=== PATIENT | male | born 1940 | race Caucasian/White ===

== ENCOUNTER 2018-06-03 18:38 | Emergency (ER) | payer MEDICARE ==
--- NOTE | 2018-06-03 18:54 | Emergency Department Record ---
History of Present Illness - General Chief Complaint: Chest Pain Stated Complaint: chest pain Time Seen by Provider: 06/03/18 18:48 Source: Patient Mode of Arrival: Ambulatory Limitations: No limitations - History of Present Illness Initial Comments: 78 yo male presents with intermittent chest discomfort on the left with some shortness of breath. He states the onset was this morning. He has felt tired throughout the day. No cough or fever. No leg pain or swelling. He has noted symptoms with activity including shortness of breath with walking. He denies CAD or DVT/PE history. Serge is his doctor. Complaint: Chest pain Onset/Timin -: Days(s) Onset: During rest Pain Location: Left chest Pain Radiation: None Severity: Mild Severity scale (1-10): 4 Consistency: Constant Improves With: Nothing Worsens With: Nothing Context: Other Anginal Symptoms: Dyspnea Treatments Prior to Arrival: None - Related Data Home Medications Medication Instructions Recorded Confirmed Last Taken Allopurinol 100 mg PO DAILY 06/03/18 06/03/18 Unknown Losartan/Hydrochlorothiazide 1 each PO DAILY 06/03/18 06/03/18 06/03/18 [Losartan-Hctz 50-12.5 mg Tab] Metformin HCl 500 mg PO DAILY 06/03/18 06/03/18 06/03/18 Omeprazole [Prilosec] 20 mg PO DAILY 06/03/18 06/03/18 06/03/18 Pravastatin Sodium [Pravachol] 80 mg PO DAILY 06/03/18 06/03/18 06/03/18 Tamsulosin HCl [Flomax] 0.4 mg PO DAILY 06/03/18 06/03/18 06/03/18 Allergies Allergy/AdvReac Type Severity Reaction Status Date / Time No Known Drug Allergies Allergy Verified 06/03/18 18:43 Travel Screening - Travel/Exposure Within Last 30 Days Have you traveled within the last 30 days?: No Review of Systems Constitutional: Reports: Weakness. Denies: Chills, Fever, Malaise Eyes: Denies: Eye discharge, Eye pain, Photophobia, Vision change ENT: Denies: Congestion, Throat pain Respiratory: Reports: Dyspnea. Denies: Cough Cardiovascular: Reports: Chest pain, Palpitations. Denies: Edema, Syncope Endocrine: Denies: Fatigue, Polydipsia, Polyuria Gastrointestinal: Denies: Abdominal pain, Diarrhea, Nausea, Vomiting Genitourinary: Denies: Dysuria, Frequency, Hematuria Musculoskeletal: Denies: Arthralgia, Back pain, Myalgia Skin: Denies: Bruising, Change in color, Rash Neurological: Denies: Headache Psychiatric: Denies: Anxiety Hematological/Lymphatic: Denies: Blood Clots, Easy bleeding, Easy bruising Past Medical History - SOCIAL HISTORY Smoking Status: Never smoker Alcohol Use: None Drug Use: None - RESPIRATORY Hx Respiratory Disorders: No - CARDIOVASCULAR Hx Cardio Disorders: Yes Hx Hypertension: Yes - NEURO Hx Neuro Disorders: No - GI Hx GI Disorders: Yes Hx Reflux: Yes Hx of Polyps: Yes Comment:: Hx of barretts - Hx Genitourinary Disorders: No - ENDOCRINE Hx Endocrine Disorders: No - MUSCULOSKELETAL Hx Musculoskeletal Disorders: Yes Hx Arthritis: Yes Hx Gout: Yes - PSYCH Hx Psych Problems: No - HEMATOLOGY/ONCOLOGY Hx Hematology/Oncology Disorders: No Family Medical History Any Significant Family History?: No Physical Exam - General General Appearance: Alert, Oriented x3, Cooperative, No acute distress Limitations: No limitations - Head Head exam: Atraumatic, Normal inspection - Eye Eye exam: Normal appearance. negative: Conjunctival injection - ENT ENT exam: Normal exam, Mucous membranes moist Ear exam: Normal external inspection Nasal Exam: Normal inspection Mouth exam: Normal external inspection - Neck Neck exam: Normal inspection - Respiratory Respiratory exam: Normal lung sounds bilaterally. negative: Accessory muscle use, Chest wall tenderness, Prolonged expiratory, Respiratory distress, Rhonchi , Stridor, Wheezes - Cardiovascular Cardiovascular Exam: Normal rhythm, Normal heart sounds, Irregular rhythm Peripheral Pulses: 2+: Radial (R), Radial (L) - GI/Abdominal GI/Abdominal exam: Soft. negative: Tenderness - Rectal Rectal exam: Deferred - exam: Deferred - Extremities Extremities exam: Normal inspection, Pedal edema (trace bilateral symmetric) - Back Back exam: Denies: CVA tenderness (R), CVA tenderness (L) - Neurological Neurological exam: Alert, Oriented X3 - Psychiatric Psychiatric exam: Normal affect, Normal mood - Skin Skin exam: Dry, Intact, Normal color, Warm Course Vital Signs 06/03/18 18:40 Temperature 97.6 F Pulse Rate 96 H Respiratory 18 Rate Blood Pressure 208/99 Pulse Ox 97 - Reevaluation(s) Reevaluation #1: EKG 18:37 Sinus with ventricular trigeminy, [place] Left ST No acute changes Intervals LBBB PVC's No old EKG 06/03/18 18:53 06/03/18 19:36 The labs were reviewed The troponin is normal The BNP is 763 The CBC and CMP are normal He is pain free at rest 06/03/18 20:05 Dr Connelly accepts the patient for transfer to [facility] [place] for additional work up Medical Decision Making - Lab Data Result diagrams: 06/03/18 18:45 06/03/18 18:45 Disposition Disposition: Transfer Clinical Impression: Chest pain Disposition: Acute Care Hospital Transfer Transfer To: [facility] [place] Reason For Transfer: chest pain Accepting Physician: Godwin Time Discussed w/Accepting Physician: 20:00 Condition: (2) Stable Forms: Patient Portal Access Time of Disposition: 20:06 Quality - Quality Measures Quality Measures: N/A - Blood Pressure Screening Does Patient Have Any of the Following: No Blood Pressure Classification: Hypertensive Reading Systolic Measurement: 208 Diastolic Measurement: 99 Screening for High Blood Pressure: < Pre-Hypertensive BP, F/U Documented > [ [id number]] Pre-Hypertensive Follow-up Interventions: Referral to alternative/primary care provider.
[2018-06-03 18:57] LABS: BASO % 0.4 % (0-6); EOS % 7.7 % (0-6); GRAN % 57.7 % (47-80); HEMATOCRIT 45.8 % (42.0-52.0); HEMOGLOBIN 15.2 gm/dl (14.0-18.0); LYMPH % 23.9 % (16-45); MEAN CELL VOLUME 91.2 fl (81-97); MEAN CORPUSCULAR HEMOGLOBIN 30.3 pg (27-33); MEAN CORPUSCULAR HGB CONC 33.2 g/dl (32-36); MEAN PLATELET VOLUME 8.7 fl (7.4-10.4); MONO % 10.3 % (0-9); PLATELET COUNT 337 K/uL (130-400); RED BLOOD COUNT 5.02 M/uL (4.40-5.70); RED CELL DISTRIBUTION WIDTH 14.1 % (11.5-14.5); WHITE BLOOD COUNT W/O DIFF 11.4 K/uL (4.2-12.2)
[2018-06-03 19:09] LABS: BLOOD UREA NITROGEN 17 mg/dL (8-23); CREATININE 1.1 mg/dL (0.7-1.2); EST GLOMERULAR FILTRATION RATE > 60 mL/min
[2018-06-03 19:10] LABS: TOTAL PROTEIN 7.2 g/dL (6.6-8.7)
[2018-06-03 19:11] LABS: GLUCOSE,RANDOM 93 mg/dL (74-109)
[2018-06-03 19:14] LABS: ALB/GLOB RATIO 1.6 (1.1-1.8); ALBUMIN 4.4 g/dL (4.0-5.0); ALKALINE PHOSPHATASE 89 U/L (40-129); ALT/SGPT 18 U/L (<41); AST/SGOT 23 U/L (10.0-50.0)
[2018-06-03 19:19] LABS: PARTIAL THROMBOPLASTIN TIME 23.8 SECONDS (24.5-39.1)
[2018-06-03] MEDS ORDERED: ASPIRIN 81 MG CHEWABLE TABLET PO ONE (19:37)
== END 2018-06-03 21:18 | disposition short-term general hospital (02) ==
LOC: ER 18:38
DX: R07.89 Other chest pain (principal); R06.02 Shortness of breath; I10 Essential (primary) hypertension
CPT/HCPCS: 71046; 80053; 83880; 84484; 85025; 85610; 85730; 93005; 93010; 99285

== ENCOUNTER 2018-07-01 13:52 | Emergency (ER) | payer MEDICARE ==
--- NOTE | 2018-07-01 14:02 | Emergency Department Record ---
History of Present Illness - General Chief complaint: Male Urogenital Problem Stated complaint: LEAKING CATHETER Time Seen by Provider: 07/01/18 13:58 Source: Patient Mode of Arrival: Ambulatory Limitations: No limitations - History of Present Illness Initial comments: 78 yo male presents with leakage around a wood catheter. No pain, pus, blood, or fevers. His catheter is for urinary retention over the last month. This catheter has been in place for about 2 weeks. No obstruction. No clots. MD Complaint: Other -: Hour(s) Location: Penis Radiation: None Severity: Mild Quality: Other Consistency: Intermittent Improves with: Other Worsens with: Urination Reports: Denies other symptoms - Related Data Allergies Allergy/AdvReac Type Severity Reaction Status Date / Time No Known Drug Allergies Allergy Verified 07/01/18 13:56 Review of Systems Constitutional: Denies: Chills, Fever, Malaise, Weakness Eyes: Denies: Eye discharge ENT: Denies: Congestion, Throat pain Respiratory: Denies: Cough Cardiovascular: Denies: Chest pain, Palpitations, Syncope Endocrine: Denies: Fatigue Gastrointestinal: Denies: Abdominal pain, Diarrhea, Nausea, Vomiting Genitourinary: Reports: Incontinence, Retention Musculoskeletal: Denies: Arthralgia, Back pain Skin: Denies: Bruising, Change in color, Rash Neurological: Denies: Headache Psychiatric: Denies: Anxiety Hematological/Lymphatic: Denies: Easy bleeding, Easy bruising Past Medical History - SOCIAL HISTORY Smoking Status: Never smoker Alcohol Use: None Drug Use: None - RESPIRATORY Hx Respiratory Disorders: No - CARDIOVASCULAR Hx Cardio Disorders: Yes Hx Hypertension: Yes - NEURO Hx Neuro Disorders: No - GI Hx GI Disorders: Yes Hx Reflux: Yes Hx of Polyps: Yes Comment:: Hx of barretts - Hx Genitourinary Disorders: No - ENDOCRINE Hx Endocrine Disorders: No - MUSCULOSKELETAL Hx Musculoskeletal Disorders: Yes Hx Arthritis: Yes Hx Gout: Yes - PSYCH Hx Psych Problems: No - HEMATOLOGY/ONCOLOGY Hx Hematology/Oncology Disorders: No Family Medical History Any Significant Family History?: No Physical Exam - General General Appearance: Alert, Oriented x3, Cooperative, No acute distress Limitations: No limitations - Head Head exam: Atraumatic, Normal inspection - Eye Eye exam: Normal appearance - ENT ENT exam: Normal exam Ear exam: Normal external inspection Nasal Exam: Normal inspection Mouth exam: Normal external inspection - Neck Neck exam: Normal inspection - GI/Abdominal GI/Abdominal exam: Soft. negative: Distended, Guarding, Tenderness - Rectal Rectal exam: Deferred - exam: Normal inspection, Other (No meatal erythema or irritation). negative : Scrotal swelling, Testicular tenderness, Urethral discharge - Extremities Extremities exam: Normal inspection - Back Back exam: Denies: CVA tenderness (R), CVA tenderness (L) - Neurological Neurological exam: Alert, Oriented X3 - Psychiatric Psychiatric exam: Normal affect, Normal mood - Skin Skin exam: Dry, Intact, Normal color, Warm Course - Reevaluation(s) Reevaluation #1: 18 Fr wood was replaced without difficulty by the RN The patient has follow up scheduled with his urologist already 07/01/18 14:25 Disposition Disposition: Discharge Clinical Impression: Wood catheter problem Qualifiers: Encounter type: initial encounter Qualified Code(s): T83.9XXA - Unspecified complication of genitourinary prosthetic device, implant and graft, initial encounter Disposition: Home, Self-Care Condition: (1) Good Instructions: Wood Catheter Placement and Care (ED) Additional Instructions: Call your urologist or return if the catheter has any problems Return to the ER for a recheck if worse, any new concerns or questions Follow up with the urologist as scheduled Review this ER visit and the tests performed with your family doctor Forms: Patient Portal Access Time of Disposition: 14:26 Quality - Quality Measures Quality Measures: N/A - Blood Pressure Screening Does Patient Have Any of the Following: Active Dx of HTN Blood Pressure Classification: Hypertensive Reading Systolic Measurement: 121 Diastolic Measurement: 96 Screening for High Blood Pressure: Patient Exclusion, Hx of HTN [G9744]
[2018-07-01] MEDS ORDERED: LIDOCAINE UROJECT 10 ML APPL MM ONE (14:07)
== END 2018-07-01 14:32 | disposition home or self-care (01) ==
LOC: ER 13:52
DX: T83.038A Leakage of other urinary catheter, initial encounter (principal); Y73.8 Miscellaneous gastroenterology and urology devices associated with adverse incidents, not elsewhere classified; I10 Essential (primary) hypertension
CPT/HCPCS: 99282

== ENCOUNTER 2018-07-04 18:38 | Emergency (ER) | payer MEDICARE ==
--- NOTE | 2018-07-04 18:57 | Emergency Department Record ---
History of Present Illness - General Chief complaint: Male Urogenital Problem Stated complaint: NEED HIS CATH CHANGED Time Seen by Provider: 07/04/18 18:53 Source: Patient Mode of Arrival: Ambulatory Limitations: No limitations - History of Present Illness Initial comments: 78 yo male presents to ED for evaluation of a leaking catheter. Patient reports that he has had an indwelling wood catheter for 4 weeks following an episode of urinary retention, did follow-up with his urologist for removal however his retention returned. Patient denies fevers/chills, nausea or vomiting symptoms. Patient reports that he would like to have his catheter removed without replacing it. MD Complaint: Other Onset/Timin -: Hour(s) Location: Penis Radiation: None Consistency: Constant Improves with: None Worsens with: None Indwelling catheter Reports: Denies other symptoms - Related Data Previous Rx's Medication Instructions Recorded Cephalexin [Keflex] 500 mg PO TID #20 cap 07/04/18 Allergies Allergy/AdvReac Type Severity Reaction Status Date / Time No Known Drug Allergies Allergy Verified 07/01/18 13:56 Travel Screening - Travel/Exposure Within Last 30 Days Have you traveled within the last 30 days?: No Review of Systems Constitutional: Denies: Chills, Fever, Malaise, Night sweats Eyes: Denies: Eye discharge, Eye pain ENT: Denies: Congestion, Ear pain, Epistaxis Respiratory: Denies: Cough, Dyspnea Cardiovascular: Denies: Chest pain, Dyspnea on exertion Endocrine: Denies: Fatigue, Heat or cold intolerance Gastrointestinal: Denies: Abdominal pain, Nausea, Vomiting Genitourinary: Reports: Retention. Denies: Incontinence Musculoskeletal: Denies: Arthralgia, Back pain, Gout, Joint swelling Skin: Denies: Bruising, Change in color Neurological: Denies: Abnormal gait, Confusion, Headache Psychiatric: Denies: Anxiety Hematological/Lymphatic: Denies: Anemia, Blood Clots Past Medical History - SOCIAL HISTORY Smoking Status: Never smoker - RESPIRATORY Hx Respiratory Disorders: No - CARDIOVASCULAR Hx Cardio Disorders: Yes Hx Hypertension: Yes - NEURO Hx Neuro Disorders: No - GI Hx GI Disorders: Yes Hx Reflux: Yes Hx of Polyps: Yes Comment:: Hx of barretts - Hx Genitourinary Disorders: No - ENDOCRINE Hx Endocrine Disorders: No - MUSCULOSKELETAL Hx Musculoskeletal Disorders: Yes Hx Arthritis: Yes Hx Gout: Yes - PSYCH Hx Psych Problems: No - HEMATOLOGY/ONCOLOGY Hx Hematology/Oncology Disorders: No Family Medical History Any Significant Family History?: No Physical Exam - General General Appearance: Alert, Oriented x3, Cooperative, No acute distress Limitations: No limitations - Head Head exam: Atraumatic, Normocephalic, Normal inspection Head exam detail: negative: Abrasion, Contusion, Fisher's sign, General tenderness, Hematoma, Laceration - Eye Eye exam: Normal appearance. negative: Conjunctival injection, Periorbital swelling, Periorbital tenderness, Scleral icterus - ENT Ear exam: negative: Auricular hematoma, Auricular trauma Nasal Exam: negative: Active bleeding, Discharge, Dried blood, Foreign body Mouth exam: negative: Drooling, Laceration, Muffled voice, Tongue elevation - Neck Neck exam: Normal inspection. negative: Meningismus, Tenderness - Respiratory Respiratory exam: Normal lung sounds bilaterally. negative: Respiratory distress, Rhonchi, Stridor, Wheezes - Cardiovascular Cardiovascular Exam: Regular rate, Normal rhythm, Normal heart sounds - GI/Abdominal GI/Abdominal exam: Soft. negative: Distended, Rebound, Rigid, Tenderness - Rectal Rectal exam: Deferred - exam: Deferred - Extremities Extremities exam: Normal inspection. negative: Pedal edema, Tenderness - Back Back exam: Denies: CVA tenderness (R), CVA tenderness (L) - Neurological Neurological exam: Alert, Normal gait, Oriented X3 - Psychiatric Psychiatric exam: Normal affect, Normal mood - Skin Skin exam: Normal color. negative: Abrasion Type of lesion: negative: abrasion Course Vital Signs 07/04/18 18:50 Temperature 98.2 F Pulse Rate [ 56 L Pulse Ox Probe] Respiratory 20 Rate Blood Pressure 112/73 [Left Arm] Pulse Ox 97 - Reevaluation(s) Reevaluation #1: 07/04/18 18:57 Patient was seen and examined Following discussion with the patient, will remove wood catheter and attempt urination trial. Reevaluation #2: 07/04/18 19:59 Patient was able to void 40 mL, will send for analysis and reassess. Reevaluation #3: 07/04/18 20:40 UA reviewed: RBC: TNTC WBC: TNTC Bacteria: 2+ Patient reports that he is feeling much better, will initiate treatment for UTI with Keflex with instructions to call his urologist for a follow-up appointment in 1-3 days. Patient was counseled that he may need to return for recurrent retention symptoms and is aware of this risk. Patient appears stable for discharge at this time. Disposition Disposition: Discharge Clinical Impression: Malfunction of Wood catheter Qualifiers: Encounter type: initial encounter Qualified Code(s): T83.011A - Breakdown ( mechanical) of indwelling urethral catheter, initial encounter UTI (urinary tract infection) Qualifiers: Urinary tract infection type: acute cystitis Hematuria presence: with hematuria Qualified Code(s): N30.01 - Acute cystitis with hematuria Disposition: Home, Self-Care Condition: (2) Stable Instructions: Urinary Tract Infection in Men (ED) Additional Instructions: Return to ED if your symptoms worsen or if you have any concerns. Keflex as directed. Follow-up with your Urolgist in 1-3 days as directed. Prescriptions: Cephalexin [Keflex] 500 mg PO TID #20 cap Forms: Patient Portal Access Time of Disposition: 20:43 Quality - Quality Measures Quality Measures: N/A - Blood Pressure Screening Does Patient Have Any of the Following: No Blood Pressure Classification: Normal BP Reading Systolic Measurement: 112 Diastolic Measurement: 73 Screening for High Blood Pressure: < Normal BP, F/U Not Required > [G8783]
[2018-07-04 20:14] LABS: URINE APPEARANCE CLOUDY; URINE BILIRUBIN NEGATIVE (NEGATIVE); URINE BLOOD LARGE (NEGATIVE); URINE COLOR YELLOW; URINE GLUCOSE (UA) NEGATIVE (NEGATIVE); URINE KETONE NEGATIVE (NEGATIVE); URINE LEUKOCYTE ESTERASE MODERATE (NEGATIVE); URINE NITRITE NEGATIVE (NEGATIVE); URINE UROBILINOGEN 0.2 E.U./dL (0.20 - 1.00)
[2018-07-04 20:22] LABS: URINE BACTERIA 2+; URINE EPITHELIAL CELLS NONE SEEN (FEW)
[2018-07-04] MEDS ORDERED: CEPHALEXIN 500 MG CAPSULE PO STA (20:40)
== END 2018-07-04 20:55 | disposition home or self-care (01) ==
LOC: ER 18:38
DX: T83.011A Breakdown (mechanical) of indwelling urethral catheter, initial encounter (principal); N30.01 Acute cystitis with hematuria; I10 Essential (primary) hypertension; Y84.6 Urinary catheterization as the cause of abnormal reaction of the patient, or of later complication, without mention of misadventure at the time of the procedure; Y92.007 Garden or yard of unspecified non-institutional (private) residence as the place of occurrence of the external cause
CPT/HCPCS: 81001; 99283